=== PATIENT | female | born 1955 | race Caucasian/White ===

== ENCOUNTER 2016-11-20 11:48 | Outpatient (CLI) | payer OTHER | END 2016-11-20 11:49 | disposition home or self-care (01) | LOC: MADLABBHPM 11:48 | PROVIDERS: ATTEND Family Medicine | DX: Z01.419 Encounter for gynecological examination (general) (routine) without abnormal findings (principal) | CPT/HCPCS: 36415; 88142; G0123 ==

== ENCOUNTER 2016-12-23 10:03 | Outpatient (CLI) | payer OTHER ==
[2016-12-23 10:44] LABS: Hemoglobin A1c 5.3 % (4.0-6.0)
[2016-12-23 11:01] LABS: ALT (SGPT) 17 U/L (0-55); AST (SGOT) 17 U/L (5-34); Albumin 4.3 g/dL (3.4-4.8); Alkaline Phosphatase 52 U/L (40-150); Anion Gap 14 mmol/L (10-20); BUN (Urea Nitrogen) 19 mg/dL (9.8-20.1); Bilirubin, Total 0.9 mg/dL (0.2-1.2); Calc. Creatinine Clearance 0 mL/min (70-130); Calcium 9.4 mg/dL (7.8-10.44); Carbon Dioxide 29 mmol/L (23-31); Chloride 103 mmol/L (98-107); Cholesterol 305 mg/dL (< 200 Desired); Estimated GFR-MDRD 69; Globulin 2.9 g/dL (2.4-3.5); Glucose 105 mg/dL (80-115); HDL Cholesterol 51 mg/dL (>60 Neg Risk); LDL Cholesterol, Calculated 209 mg/dL; Potassium 4.3 mmol/L (3.5-5.1); Protein, Total 7.2 g/dL (5.8-8.1); Sodium 142 mmol/L (136-145); Triglycerides 227 mg/dL (Less than 150)
[2016-12-23 11:40] LABS: Free T4 (Free Thyroxine) 0.85 ng/dL (0.70-1.48)
[2016-12-24 11:03] LABS: Thyroid Stimulating Hormone 1.7764 uIU/mL (0.35-4.94)
== END 2016-12-23 10:04 | disposition home or self-care (01) ==
LOC: MADLABBHPM 10:03
PROVIDERS: ATTEND Family Medicine
DX: E78.5 Hyperlipidemia, unspecified (principal)
CPT/HCPCS: 36415; 80053; 80061; 83036; 84439; 84443

== ENCOUNTER 2017-08-04 09:47 | Outpatient (CLI) | payer OTHER ==
[2017-08-04 10:43] LABS: ALT (SGPT) 28 U/L (8-55); AST (SGOT) 21 U/L (5-34); Albumin 4.1 g/dL (3.4-4.8); Alkaline Phosphatase 55 U/L (40-150); Anion Gap 13 mmol/L (10-20); BUN (Urea Nitrogen) 16 mg/dL (9.8-20.1); Bilirubin, Total 0.8 mg/dL (0.2-1.2); Calc. Creatinine Clearance 0 mL/min (70-130); Calcium 9.4 mg/dL (7.8-10.44); Carbon Dioxide 27 mmol/L (23-31); Cardiac Risk 6.8 (Less than 4.5); Chloride 104 mmol/L (98-107); Cholesterol 307 mg/dl (< 200 Desired); Estimated GFR-MDRD 67; Globulin 3.3 g/dL (2.4-3.5); Glucose 112 mg/dL (80-115); HDL Cholesterol 45 mg/dL (>60 Neg Risk); LDL Cholesterol, Calculated 195 mg/dL; Potassium 4.4 mmol/L (3.5-5.1); Protein, Total 7.4 g/dL (6.0-8.3); Sodium 140 mmol/L (136-145); Triglycerides 333 mg/dL (Less than 150)
== END 2017-08-04 09:48 | disposition home or self-care (01) ==
LOC: MADLAB 09:47
PROVIDERS: ATTEND Family Medicine
DX: E78.5 Hyperlipidemia, unspecified (principal)
CPT/HCPCS: 36415; 80053; 80061

== ENCOUNTER 2023-09-09 16:42 | Outpatient (CLI) | payer MEDICARE, SELFPAY | END 2023-09-09 16:43 | disposition home or self-care (01) | LOC: MADRAD 16:42 | PROVIDERS: ATTEND Family Medicine | DX: R10.9 Unspecified abdominal pain (principal) | CPT/HCPCS: 74018 ==